=== PATIENT | female | born 1945 | race Caucasian/White ===

== ENCOUNTER 2017-11-29 07:08 | Inpatient (IN) | payer MEDICARE, OTHER ==
[2017-11-29] VITALS (20 sets, daily range): BP systolic 106–168; BP diastolic 60–98
[~2017-11-29] VITALS: Ht 160 cm; Wt 55.7 kg
[~2017-11-29 07:08] MED LIST: ASPI-611 PO; CARV-50 PO; FURO-150 PO; LOSA25TA96 PO; LOVA40TA76 PO; MULT-342 PO; NITR0.4T48 SL; NITR100C6 PO; POTA10TA36 PO
[2017-11-29] MEDS ORDERED: nitroGLYCERIN-Tridil 50MG/D5W 250 ML IV PRN (07:33)
[2017-11-29 07:34] LABS: BASOPHILS % (AUTO) 0.3 % (0-1); EOSINOPHILS # (AUTO) 0.1 X10'3 (0-0.9); EOSINOPHILS % (AUTO) 0.6 % (0-6); HEMATOCRIT 45.8 % (35.0-45.0); HEMOGLOBIN 15.6 g/dl (12.0-16.0); LYMPHOCYTES # (AUTO) 1.2 X10'3 (1.1-4.8); LYMPHOCYTES % (AUTO) 11.1 % (21-51); MEAN CORPUSCULAR HEMOGLOBIN 30.5 PG (27.0-31.0); MEAN CORPUSCULAR HGB CONC 33.9 % (33.0-36.5); MEAN CORPUSCULAR VOLUME 89.9 FL (78-98); MEAN PLATELET VOLUME 7.1 FL (7.4-10.4); MONOCYTES # (AUTO) 0.6 X10'3 (0-0.9); MONOCYTES % (AUTO) 5.7 % (2-12); NEUTROPHILS % (AUTO) 82.3 % (42-75); PLATELET COUNT 217 X10'3 (140-440); RED CELL DISTRIBUTION WIDTH 13.7 % (11.5-14.5)
[2017-11-29] MEDS ORDERED: heparin 10,000 units/1 ML INJ IV ONE (07:35)
[2017-11-29] MEDS ORDERED: metoprolol tartrate 1mg/ml inj IV ONE (07:35)
[2017-11-29] MEDS ORDERED: MORPHINE 2MG in 2ml NS syringe IV STA (07:37)
[2017-11-29 07:41] LABS: INR 1.1 INR; PARTIAL THROMBOPLASTIN TIME 32 SECONDS (22-32); PROTHROMBIN TIME 11.7 SECONDS (9.0-12.0)
[2017-11-29] MEDS ORDERED: iohexol 350 MG/ML 50ML vial IV ONE (07:52)
[2017-11-29] MEDS ORDERED: LIDOcaine 1%/PF (10mg/ml) 5ml vial ONE ×2 (07:52)
[2017-11-29] MEDS ORDERED: fentaNYL/PF 50MCG/1 ML 2ML syringe ONE (07:52)
[2017-11-29] MEDS ORDERED: iohexol 350 MG/1 ML 200ml bottle ONE (07:52)
[2017-11-29] MEDS ORDERED: midazolam 2 mg/2 ml injection ONE (07:52)
[2017-11-29 07:53] LABS: ALANINE AMINOTRANSFERASE 26 U/L (12-78); ALBUMIN 3.5 G/DL (3.4-5.0); ALBUMIN/GLOBULIN RATIO 0.9 (1.1-1.5); ALKALINE PHOSPHATASE 94 IU/L (46-116); ANION GAP 12 (8-16); ASPARTATE AMINO TRANSFERASE 21 U/L (10-37); BILIRUBIN,TOTAL 1.2 MG/DL (0.1-1.0); BLOOD UREA NITROGEN 14 MG/DL (7-18); CALCIUM 9.2 MG/DL (8.5-10.1); CHLORIDE 92 MMOL/L (99-107); GLUCOSE 110 MG/DL (70-104); POTASSIUM 4.2 MMOL/L (3.5-5.1); SODIUM 128 MMOL/L (135-145); TOTAL PROTEIN 7.6 G/DL (6.4-8.2); eGFR 82 ML/MIN
[2017-11-29] MEDS ORDERED: aspirin 81mg tab.chew ONE (08:00)
[2017-11-29] MEDS ORDERED: ondansetron/PF 4mg/2ml inj IV ONE (08:00)
[2017-11-29] MEDS ORDERED: heparin, porcine/D5W 25,000 units/250ml premix IV ONE (08:00)
[2017-11-29] MEDS ORDERED: nitroGLYCERIN in D5W 50mg/250ml (Tridil) infusion IV ONE (08:00)
[2017-11-29] MEDS ORDERED: sodium chloride 0.45% 1,000 ML IV ONE (10:05)
[2017-11-29] MEDS ORDERED: nitroGLYCERIN 0.4mg SUBLingual tab SL PRN (10:30)
[2017-11-29] MEDS ORDERED: morphine 10mg/ml inj. IV PRN (10:30)
[2017-11-29] MEDS ORDERED: acetaminophen 325mg tablet PO PRN (10:30)
[2017-11-29] MEDS ORDERED: cyclobenzaprine 10mg tablet PO PRN (10:30)
[2017-11-29] MEDS ORDERED: magnesium hydroxide 30ml (MOM) UD suspension PO PRN (10:30)
[2017-11-29] MEDS: nitrofuran/nitrofuran macrocrysal 100 MG capsule PO SCH ×2 (14:18→20:06)
[2017-11-29] MEDS: heparin 10,000 units/1 ML INJ IV PRN (16:43)
[2017-11-29] MEDS: docusate sod 100mg capsule PO SCH (20:00)
[2017-11-29] MEDS: carVEDilol 12.5mg tablet PO SCH (20:06)
[2017-11-29] MEDS: morphine 4 MG/ML inj SYRINge IV PRN (20:07)
[2017-11-29] MEDS: OXAZEpam 15mg capsule PO PRN (21:30)
[2017-11-30] VITALS (24 sets, daily range): BP systolic 104–170; BP diastolic 59–102
[2017-11-30 03:32] LABS: BASOPHILS % (AUTO) 0.3 % (0-1); EOSINOPHILS # (AUTO) 0.1 X10'3 (0-0.9); EOSINOPHILS % (AUTO) 0.9 % (0-6); HEMATOCRIT 37.4 % (35.0-45.0); HEMOGLOBIN 12.8 g/dl (12.0-16.0); LYMPHOCYTES # (AUTO) 1.3 X10'3 (1.1-4.8); LYMPHOCYTES % (AUTO) 12.7 % (21-51); MEAN CORPUSCULAR HEMOGLOBIN 30.8 PG (27.0-31.0); MEAN CORPUSCULAR HGB CONC 34.2 % (33.0-36.5); MEAN PLATELET VOLUME 7.7 FL (7.4-10.4); MONOCYTES # (AUTO) 0.7 X10'3 (0-0.9); MONOCYTES % (AUTO) 6.9 % (2-12); NEUTROPHILS # (AUTO) 7.8 X10'3 (1.8-7.7); NEUTROPHILS % (AUTO) 79.2 % (42-75); PLATELET COUNT 207 X10'3 (140-440); RED BLOOD COUNT 4.15 X10'6 (4.20-5.60); RED CELL DISTRIBUTION WIDTH 13.7 % (11.5-14.5); WHITE BLOOD COUNT 9.9 X10'3 (4.5-11.0)
[2017-11-30 03:47] LABS: ALBUMIN 2.9 G/DL (3.4-5.0); ANION GAP 9 (8-16); BLOOD UREA NITROGEN 15 MG/DL (7-18); BUN/CREATININE RATIO 33.3 (6.6-38.0); CALCIUM 8.5 MG/DL (8.5-10.1); CHLORIDE 96 MMOL/L (99-107); CHOL/HDL RATIO 2.7 (0.00-4.99); CHOLESTEROL 142 MG/DL (0-200); CREATININE 0.45 MG/DL (0.40-0.90); GLUCOSE 121 MG/DL (70-104); HDL CHOLESTEROL 53 MG/DL (35-60); LDL CHOLESTEROL 74 MG/DL (50-100); POTASSIUM 3.9 MMOL/L (3.5-5.1); SODIUM 129 MMOL/L (135-145); TOTAL CARBON DIOXIDE 24.2 MMOL/L (24-32); TRIGLYCERIDES 54 MG/DL (20-135); eGFR > 90 ML/MIN
[2017-11-30] MEDS: docusate sod 100mg capsule PO SCH ×2 (09:19→20:28)
[2017-11-30] MEDS: carVEDilol 12.5mg tablet PO SCH ×2 (09:19→20:28)
[2017-11-30] MEDS: furosemide 20MG tablet PO SCH (09:19)
[2017-11-30] MEDS: aspirin 81mg tab.chew PO SCH (09:20)
[2017-11-30] MEDS: multivitamins, therapeutics tablet PO SCH (09:20)
[2017-11-30] MEDS: atorvastatin 10mg tablet PO SCH (09:21)
[2017-11-30] MEDS: potassium chloride 10mEq ER tablet PO SCH (09:21)
[2017-11-30] MEDS: nitrofuran/nitrofuran macrocrysal 100 MG capsule PO SCH ×2 (09:24→20:28)
[2017-11-30] MEDS ORDERED: MESSAGE TO NURSING PO ONE ×5 (09:40→10:00)
[2017-11-30] MEDS ORDERED: dextrose 50%-water 50ml dispensing syringe IV PRN (09:40)
[2017-11-30] MEDS ORDERED: iohexol 350MG/ML 100ml bottle IV ONE (09:57)
[2017-11-30] MEDS: morphine 4 MG/ML inj SYRINge IV PRN ×3 (09:57→20:43)
[2017-11-30] MEDS: insulin Lispro (HumaLOG) vial - multi-dose SQ SCH ×2 (12:35→18:00)
[2017-11-30] MEDS: losartan 50mg tablet PO SCH (14:35)
[2017-11-30 15:33] LABS: INR 1.1 INR; PROTHROMBIN TIME 11.7 SECONDS (9.0-12.0)
[2017-11-30] MEDS: mupirocin 2% ointment 22GM NS SCH (19:46)
[2017-11-30] MEDS: OXAZEpam 15mg capsule PO PRN (20:43)
[2017-11-30] MEDS: methyl salicylate/menthol cream 85gm TP SCH (20:49)
[2017-12-01] VITALS (30 sets, daily range): BP systolic 84–143; BP diastolic 52–83
[2017-12-01 02:50] LABS: BASOPHILS # (AUTO) 0.1 X10'3 (0-0.2); EOSINOPHILS # (AUTO) 0.2 X10'3 (0-0.9); EOSINOPHILS % (AUTO) 2.5 % (0-6); HEMATOCRIT 36.1 % (35.0-45.0); HEMOGLOBIN 12.4 g/dl (12.0-16.0); LYMPHOCYTES # (AUTO) 1.1 X10'3 (1.1-4.8); LYMPHOCYTES % (AUTO) 12.2 % (21-51); MEAN CORPUSCULAR HEMOGLOBIN 30.7 PG (27.0-31.0); MEAN CORPUSCULAR HGB CONC 34.4 % (33.0-36.5); MEAN CORPUSCULAR VOLUME 89.3 FL (78-98); MEAN PLATELET VOLUME 7.1 FL (7.4-10.4); MONOCYTES # (AUTO) 0.7 X10'3 (0-0.9); MONOCYTES % (AUTO) 7.5 % (2-12); NEUTROPHILS # (AUTO) 7.1 X10'3 (1.8-7.7); NEUTROPHILS % (AUTO) 76.8 % (42-75); PLATELET COUNT 207 X10'3 (140-440); RED BLOOD COUNT 4.04 X10'6 (4.20-5.60); RED CELL DISTRIBUTION WIDTH 13.8 % (11.5-14.5); WHITE BLOOD COUNT 9.2 X10'3 (4.5-11.0)
[2017-12-01 03:06] LABS: ALBUMIN 2.8 G/DL (3.4-5.0); ANION GAP 8 (8-16); BLOOD UREA NITROGEN 12 MG/DL (7-18); BUN/CREATININE RATIO 24.5 (6.6-38.0); CALCIUM 8.6 MG/DL (8.5-10.1); CHLORIDE 94 MMOL/L (99-107); CREATININE 0.49 MG/DL (0.40-0.90); GLUCOSE 123 MG/DL (70-104); POTASSIUM 3.9 MMOL/L (3.5-5.1); SODIUM 130 MMOL/L (135-145); TOTAL CARBON DIOXIDE 28.5 MMOL/L (24-32); eGFR > 90 ML/MIN
[2017-12-01] MEDS ORDERED: insulin regular, human inj. 100 UNITS in normal saline 100ml IV soln 100 ML IV SCH ×2 (05:00)
[2017-12-01] MEDS ORDERED: vancomycin/NS 1 GM ADD-VANTAGE 250 ML IV ONE (05:00)
[2017-12-01] MEDS ORDERED: ceFAZolin 2gm in dextrose, iso 100 ML IV ONE (05:00)
[2017-12-01] MEDS: carVEDilol 12.5mg tablet PO SCH ×2 (08:00→20:37)
[2017-12-01] MEDS: losartan 50mg tablet PO SCH (08:00)
[2017-12-01] MEDS: multivitamins, therapeutics tablet PO SCH (08:36)
[2017-12-01] MEDS: docusate sod 100mg capsule PO SCH ×2 (08:36→20:36)
[2017-12-01] MEDS: aspirin 81mg tab.chew PO SCH (08:37)
[2017-12-01] MEDS: furosemide 20MG tablet PO SCH (08:37)
[2017-12-01] MEDS: nitrofuran/nitrofuran macrocrysal 100 MG capsule PO SCH ×2 (08:37→20:36)
[2017-12-01] MEDS: atorvastatin 10mg tablet PO SCH (08:37)
[2017-12-01] MEDS: potassium chloride 10mEq ER tablet PO SCH (08:37)
[2017-12-01] MEDS: methyl salicylate/menthol cream 85gm TP SCH ×3 (08:38→21:00)
[2017-12-01] MEDS: heparin 10,000 units/1 ML INJ IV PRN (10:47)
[2017-12-01] MEDS ORDERED: MESSAGE TO NURSING PO ONE ×2 (12:38→12:46)
[2017-12-01 13:10] LABS: CLARITY,URINE Clear (Clear); COLOR,URINE Dark Yellow (Yellow); GLUCOSE, URINE Negative (Neg); KETONES,URINE 15 mg/dl (Neg); LEUKOCYTE ESTERASE ,URINE Negative (Neg); NITRITES, URINE Negative (Neg); OCCULT BLOOD,URINE Negative (Neg); PH,URINE 5.5 (4.8-8.0); PROTEIN,URINE Negative (Neg)
[2017-12-01] MEDS ORDERED: dextrose 50%-water 50ml dispensing syringe IV PRN (13:15)
[2017-12-01 13:23] LABS: UA COLLECTION TYPE NON-SPECIFIED
[2017-12-01] MEDS: pantoprazole 40 MG vial IV SCH (16:08)
[2017-12-01] MEDS: morphine 4 MG/ML inj SYRINge IV PRN (19:43)
[2017-12-01] MEDS: proCHLORperazine 10 MG/2 ml inj IV PRN (23:36)
[2017-12-02] VITALS (30 sets, daily range): BP systolic 85–160; BP diastolic 50–89
[2017-12-02] MEDS: morphine 4 MG/ML inj SYRINge IV PRN (00:07)
[2017-12-02] MEDS ORDERED: MESSAGE TO NURSING PO ONE ×3 (01:30→05:30)
[2017-12-02] MEDS ORDERED: morphine 4 MG/ML inj SYRINge IV ONE (02:20)
[2017-12-02] MEDS ORDERED: morphine 4 MG/ML inj SYRINge IV PRN (02:20)
[2017-12-02 03:25] LABS: BASOPHILS % (AUTO) 0.2 % (0-1); EOSINOPHILS % (AUTO) 0.2 % (0-6); HEMATOCRIT 37.3 % (35.0-45.0); HEMOGLOBIN 12.7 g/dl (12.0-16.0); LYMPHOCYTES # (AUTO) 0.6 X10'3 (1.1-4.8); LYMPHOCYTES % (AUTO) 4.3 % (21-51); MEAN CORPUSCULAR HEMOGLOBIN 30.8 PG (27.0-31.0); MEAN CORPUSCULAR VOLUME 90.4 FL (78-98); MEAN PLATELET VOLUME 7.4 FL (7.4-10.4); MONOCYTES # (AUTO) 0.3 X10'3 (0-0.9); MONOCYTES % (AUTO) 2.3 % (2-12); NEUTROPHILS # (AUTO) 12.5 X10'3 (1.8-7.7); PLATELET COUNT 216 X10'3 (140-440); RED BLOOD COUNT 4.13 X10'6 (4.20-5.60); RED CELL DISTRIBUTION WIDTH 13.5 % (11.5-14.5); WHITE BLOOD COUNT 13.4 X10'3 (4.5-11.0)
[2017-12-02 03:37] LABS: ALBUMIN 2.9 G/DL (3.4-5.0); ANION GAP 10 (8-16); BLOOD UREA NITROGEN 20 MG/DL (7-18); BUN/CREATININE RATIO 45.5 (6.6-38.0); CALCIUM 9.1 MG/DL (8.5-10.1); CHLORIDE 93 MMOL/L (99-107); CREATININE 0.44 MG/DL (0.40-0.90); GLUCOSE 151 MG/DL (70-104); POTASSIUM 4.1 MMOL/L (3.5-5.1); SODIUM 129 MMOL/L (135-145); TOTAL CARBON DIOXIDE 26.2 MMOL/L (24-32); eGFR > 90 ML/MIN
[2017-12-02 03:39] LABS: INR 1.1 INR; PROTHROMBIN TIME 11.5 SECONDS (9.0-12.0)
[2017-12-02] MEDS ORDERED: ceFAZolin 2gm in dextrose, iso 100 ML IV ONE (05:30)
[2017-12-02] MEDS ORDERED: vancomycin/NS 1 GM ADD-VANTAGE 250 ML IV ONE (05:30)
[2017-12-02] MEDS: proCHLORperazine 10 MG/2 ml inj IV PRN (06:39)
[2017-12-02] MEDS: pantoprazole 40 MG vial IV SCH (07:38)
[2017-12-02] MEDS: methyl salicylate/menthol cream 85gm TP SCH ×3 (08:00→20:33)
[2017-12-02] MEDS: carVEDilol 12.5mg tablet PO SCH ×2 (08:12→20:31)
[2017-12-02] MEDS: furosemide 20MG tablet PO SCH (08:12)
[2017-12-02] MEDS: potassium chloride 10mEq ER tablet PO SCH (08:13)
[2017-12-02] MEDS: aspirin 81mg tab.chew PO SCH (08:13)
[2017-12-02] MEDS: atorvastatin 10mg tablet PO SCH (08:13)
[2017-12-02] MEDS: multivitamins, therapeutics tablet PO SCH (08:14)
[2017-12-02] MEDS: losartan 50mg tablet PO SCH (08:14)
[2017-12-02] MEDS: docusate sod 100mg capsule PO SCH ×2 (08:14→20:31)
[2017-12-02] MEDS: nitrofuran/nitrofuran macrocrysal 100 MG capsule PO SCH ×2 (08:14→20:31)
[2017-12-02 17:41] LABS: ABG HCO3 28.5 mmol/L (22.0-26.0); ABG PCO2 (T) 42.5 mmHg (32.0-45.0); ABG PH (T) 7.445 (7.350-7.450); FCOHb 0.6 % (0.5-1.5); FLOW 2 L/min; FMetHb 0.1 % (0.3-1.12); FO2Hb 93.3 % (94-100); TOTAL HEMOGLOBIN 13.1 G/dl (12.0-16.0)
[2017-12-02] MEDS ORDERED: ringers solution, lacted 1,000 ML IV ONE (17:52)
[2017-12-02 19:47] LABS: MAGNESIUM 1.8 MG/DL (1.5-2.4); PHOSPHORUS 2.8 MG/DL (2.3-4.5)
[2017-12-02] MEDS: ipratropium/albuterol 3ml nebule NEB SCH (20:00)
[2017-12-03] VITALS (24 sets, daily range): BP systolic 98–148; BP diastolic 48–82
[2017-12-03] MEDS: insulin Lispro (HumaLOG) vial - multi-dose SQ SCH ×8 (02:57→18:00)
[2017-12-03] MEDS: mupirocin 2% ointment 22GM NS SCH ×4 (03:04→20:27)
[2017-12-03 03:51] LABS: ALBUMIN 2.5 G/DL (3.4-5.0); ANION GAP 6 (8-16); BLOOD UREA NITROGEN 20 MG/DL (7-18); BUN/CREATININE RATIO 35.7 (6.6-38.0); CALCIUM 8.6 MG/DL (8.5-10.1); CHLORIDE 95 MMOL/L (99-107); CREATININE 0.56 MG/DL (0.40-0.90); GLUCOSE 135 MG/DL (70-104); POTASSIUM 4.3 MMOL/L (3.5-5.1); SODIUM 131 MMOL/L (135-145); TOTAL CARBON DIOXIDE 30.2 MMOL/L (24-32); eGFR > 90 ML/MIN
[2017-12-03 03:54] LABS: BASOPHILS # (AUTO) 0.1 X10'3 (0-0.2); BASOPHILS % (AUTO) 0.6 % (0-1); EOSINOPHILS # (AUTO) 0.2 X10'3 (0-0.9); EOSINOPHILS % (AUTO) 1.2 % (0-6); HEMATOCRIT 33.2 % (35.0-45.0); HEMOGLOBIN 11.5 g/dl (12.0-16.0); LYMPHOCYTES # (AUTO) 0.9 X10'3 (1.1-4.8); LYMPHOCYTES % (AUTO) 6.5 % (21-51); MEAN CORPUSCULAR HEMOGLOBIN 30.9 PG (27.0-31.0); MEAN CORPUSCULAR HGB CONC 34.6 % (33.0-36.5); MEAN CORPUSCULAR VOLUME 89.3 FL (78-98); MEAN PLATELET VOLUME 8.1 FL (7.4-10.4); MONOCYTES # (AUTO) 0.5 X10'3 (0-0.9); MONOCYTES % (AUTO) 3.9 % (2-12); NEUTROPHILS # (AUTO) 11.7 X10'3 (1.8-7.7); NEUTROPHILS % (AUTO) 87.8 % (42-75); PLATELET COUNT 226 X10'3 (140-440); RED BLOOD COUNT 3.71 X10'6 (4.20-5.60); RED CELL DISTRIBUTION WIDTH 12.8 % (11.5-14.5); WHITE BLOOD COUNT 13.4 X10'3 (4.5-11.0)
[2017-12-03] MEDS ORDERED: ceFAZolin 2gm in dextrose, iso 100 ML IV ONE (05:30)
[2017-12-03] MEDS ORDERED: vancomycin/NS 1 GM ADD-VANTAGE 250 ML IV ONE (05:30)
[2017-12-03] MEDS ORDERED: LORazepam 2 mg/ml vial IV ONE (06:00)
[2017-12-03] MEDS ORDERED: famotidine 20mg tablet PO ONE (06:00)
[2017-12-03] MEDS: carVEDilol 12.5mg tablet PO SCH (07:22)
[2017-12-03] MEDS: methyl salicylate/menthol cream 85gm TP SCH ×2 (08:00→13:00)
[2017-12-03] MEDS: furosemide 20MG tablet PO SCH ×2 (08:00→08:50)
[2017-12-03] MEDS: losartan 50mg tablet PO SCH ×2 (08:00→08:49)
[2017-12-03] MEDS: docusate sod 100mg capsule PO SCH ×2 (08:49→20:00)
[2017-12-03] MEDS: potassium chloride 10mEq ER tablet PO SCH (08:49)
[2017-12-03] MEDS: aspirin 81mg tab.chew PO SCH (08:50)
[2017-12-03] MEDS: atorvastatin 10mg tablet PO SCH (08:50)
[2017-12-03] MEDS: nitrofuran/nitrofuran macrocrysal 100 MG capsule PO SCH ×2 (08:50→20:00)
[2017-12-03] MEDS: multivitamins, therapeutics tablet PO SCH (08:50)
[2017-12-03] MEDS: pantoprazole 40 MG vial IV SCH (08:50)
[2017-12-03] MEDS: ipratropium/albuterol 3ml nebule NEB SCH (09:06)
[2017-12-03] MEDS: insulin regular, human inj. 100 UNITS in normal saline 100ml IV soln 100 ML IV SCH ×10 (12:22→21:18)
[2017-12-03] MEDS ORDERED: MIDAZolam 1mg/ml 10ml vial ONE (12:25)
[2017-12-03] MEDS ORDERED: SUFENTANIL CITRATE 50 MCG/ML 2ml ampule IV ONE (12:25)
[2017-12-03] MEDS ORDERED: magnesium 1 GM/2 ML inj ONE (13:06)
[2017-12-03] MEDS ORDERED: DOPamine/D5W 400mg/250ml bag IV ONE (13:06)
[2017-12-03] MEDS ORDERED: potassium Cl 2 mEq/ml inj IV ONE (13:06)
[2017-12-03] MEDS ORDERED: nitroGLYCERIN in D5W 50mg/250ml (Tridil) infusion IV ONE (13:06)
[2017-12-03] MEDS ORDERED: calcium chloride 100 MG/1 ML inj IV ONE (13:06)
[2017-12-03] MEDS ORDERED: sodium bicarbonate (8.4%) 1 mEq/ml syringe ONE (13:06)
[2017-12-03] MEDS ORDERED: sevoflurane 250ml liquid IH ONE (13:06)
[2017-12-03] MEDS ORDERED: phenylephrine 10mg/ml inj IV ONE ×2 (13:06→17:14)
[2017-12-03] MEDS ORDERED: albumin (human) 25% 100 ML IV solution IV ONE (13:06)
[2017-12-03] MEDS ORDERED: LIDOcaine 2% (20 mg/ml) 5ml cardiac syringe ONE (13:06)
[2017-12-03] MEDS ORDERED: heparin 10,000 units/1 ML INJ ONE (13:06)
[2017-12-03 14:01] LABS: ABG BASE EXCESS 2.5 mmol/L (-2.0-3.0); ABG HCO3 27.1 mmol/L (22.0-26.0); ABG OXYGEN SATURATION 99.6 % (95-98); ABG PCO2 42.1 mmHg (35.0-45.0); ABG PH 7.427 (7.350-7.450); ABG PO2 317.7 mmHg (60.0-100.0); CL (ABG) 98 mmol/L (99-107); FCOHb 0.2 % (0.5-1.5); FMetHb 0.4 % (0.3-1.12); GLUCOSE (ABG) 108 mg/dl (70-105); IONIZED CA (ABG) 1.14 mmol/L (1.03-1.32); K (ABG) 3.9 mmol/L (3.3-5.1); NA (ABG) 129 mmol/L (135-145); TOTAL HEMOGLOBIN 11.5 G/dl (12.0-16.0)
[2017-12-03] MEDS ORDERED: heparin 10,000 units/1 ML INJ IR ONE (14:08)
[2017-12-03] MEDS ORDERED: papaverine 30 mg/ml 2ml inj. IA ONE (14:11)
[2017-12-03 14:36] LABS: ABG BASE EXCESS VENOUS 0.4 mmol/L; ABG HCO3 VENOUS 26.6 mmol/L; ABG PCO2 VENOUS 50.5 mmHg; ABG PO2 VENOUS 48.2 mmHg; CL (ABG) 96 mmol/L (99-107); FCOHb VENOUS 0.6 %; FHHb VENOUS 17.2 %; FMetHb VENOUS 0.3 %; FO2Hb VENOUS 81.9 %; GLUCOSE (ABG) 125 mg/dl (70-105); IONIZED CA (ABG) 1.16 mmol/L (1.03-1.32); NA (ABG) 129 mmol/L (135-145); TOTAL HEMOGLOBIN 10.6 G/dl (12.0-16.0)
[2017-12-03 15:10] LABS: ABG BASE EXCESS 1.7 mmol/L (-2.0-3.0); ABG OXYGEN SATURATION 99.4 % (95-98); ABG PCO2 33.7 mmHg (35.0-45.0); ABG PH 7.489 (7.350-7.450); ABG PO2 533.6 mmHg (60.0-100.0); CL (ABG) 97 mmol/L (99-107); FCOHb 0.4 % (0.5-1.5); FMetHb 0.8 % (0.3-1.12); FO2Hb 98.2 % (94-100); GLUCOSE (ABG) 111 mg/dl (70-105); IONIZED CA (ABG) 0.97 mmol/L (1.03-1.32); K (ABG) 5.6 mmol/L (3.3-5.1); NA (ABG) 126 mmol/L (135-145); TOTAL HEMOGLOBIN 7.1 G/dl (12.0-16.0)
[2017-12-03 15:35] LABS: ABG BASE EXCESS 1.4 mmol/L (-2.0-3.0); ABG OXYGEN SATURATION 99.6 % (95-98); ABG PCO2 35.1 mmHg (35.0-45.0); ABG PH 7.471 (7.350-7.450); ABG PO2 519.8 mmHg (60.0-100.0); CL (ABG) 97 mmol/L (99-107); FCOHb 0.5 % (0.5-1.5); FMetHb 0.7 % (0.3-1.12); FO2Hb 98.4 % (94-100); GLUCOSE (ABG) 112 mg/dl (70-105); IONIZED CA (ABG) 1.02 mmol/L (1.03-1.32); K (ABG) 5.3 mmol/L (3.3-5.1); NA (ABG) 127 mmol/L (135-145); TOTAL HEMOGLOBIN 7.5 G/dl (12.0-16.0)
[2017-12-03 16:11] LABS: ABG HCO3 26.1 mmol/L (22.0-26.0); ABG OXYGEN SATURATION 99.7 % (95-98); ABG PCO2 38.2 mmHg (35.0-45.0); ABG PH 7.452 (7.350-7.450); ABG PO2 519.6 mmHg (60.0-100.0); CL (ABG) 98 mmol/L (99-107); FCOHb 0.7 % (0.5-1.5); FMetHb 0.7 % (0.3-1.12); FO2Hb 98.3 % (94-100); GLUCOSE (ABG) 131 mg/dl (70-105); K (ABG) 5.4 mmol/L (3.3-5.1); NA (ABG) 127 mmol/L (135-145); TOTAL HEMOGLOBIN 7.7 G/dl (12.0-16.0)
[2017-12-03 16:25] LABS: ABG BASE EXCESS VENOUS -1.7 mmol/L; ABG HCO3 VENOUS 24.1 mmol/L; ABG PCO2 VENOUS 45.7 mmHg; ABG PO2 VENOUS 56.7 mmHg; CL (ABG) 99 mmol/L (99-107); FCOHb VENOUS 0.2 %; FHHb VENOUS 12.4 %; FMetHb VENOUS 0.7 %; FO2Hb VENOUS 86.7 %; GLUCOSE (ABG) 130 mg/dl (70-105); IONIZED CA (ABG) 1.17 mmol/L (1.03-1.32); K (ABG) 5.1 mmol/L (3.3-5.1); NA (ABG) 129 mmol/L (135-145); TOTAL HEMOGLOBIN 8.8 G/dl (12.0-16.0)
[2017-12-03] MEDS ORDERED: niCARDipine/sod cl 20mg/200ml 200 ML IV PRN (16:58)
[2017-12-03] MEDS ORDERED: nitroGLYCERIN-Tridil 50MG/D5W 250 ML IV PRN (16:58)
[2017-12-03] MEDS ORDERED: NORepinephrine 8mg/ 250ml NS 250 ML IV PRN (16:58)
[2017-12-03] MEDS ORDERED: DOPamine 400mg/D5W 250ml 250 ML IV PRN (16:58)
[2017-12-03] MEDS ORDERED: Neutra Phos packet PO PRN (17:00)
[2017-12-03] MEDS ORDERED: sodium phosphate inj. 30 MMOL in dextrose 5%-water 250 ML IV PRN (17:00)
[2017-12-03] MEDS ORDERED: dextrose 50%-water 50ml dispensing syringe IV PRN (17:00)
[2017-12-03] MEDS ORDERED: magnesium 2GM in 50ml NS 50 ML IV PRN (17:00)
[2017-12-03] MEDS ORDERED: insulin regular, human inj. 100 UNITS in normal saline 100ml IV soln 100 ML IV SCH ×2 (17:00)
[2017-12-03] MEDS ORDERED: normal saline 250ml IV soln 250 ML IV PRN (17:00)
[2017-12-03] MEDS ORDERED: potassium Cl 20mEq/100mL bag 100 ML IV PRN ×3 (17:00)
[2017-12-03] MEDS ORDERED: epiNEPHrine inj 5 MG, calcium chloride inj. 1,000 MG in normal saline 250ml IV soln 250 ML IV SCH (17:00)
[2017-12-03] MEDS ORDERED: morphine 4 MG/ML inj SYRINge IV PRN ×2 (17:00→19:40)
[2017-12-03] MEDS ORDERED: acetaminophen 325mg tablet PO PRN (17:00)
[2017-12-03] MEDS ORDERED: metoclopramide 5 mg/ml inj IV PRN (17:00)
[2017-12-03] MEDS ORDERED: magnesium hydroxide 30ml (MOM) UD suspension PO PRN (17:00)
[2017-12-03] MEDS ORDERED: HYDROcodone/acetaminophen 10/325mg tab PO PRN (17:00)
[2017-12-03] MEDS ORDERED: sodium phosphate inj. 15 MMOL in dextrose 5%-water 150 ML IV PRN (17:00)
[2017-12-03] MEDS ORDERED: magnesium 4gm in 100ml NS 100 ML IV PRN (17:00)
[2017-12-03] MEDS ORDERED: etomidate 2mg/ml inj. ONE (17:14)
[2017-12-03] MEDS ORDERED: LIDOcaine 2% (20mg/ml) 5ml vial ONE (17:14)
[2017-12-03] MEDS ORDERED: rocuronium 10mg/ml inj IV ONE ×3 (17:14)
[2017-12-03 17:19] LABS: BASOPHILS % (AUTO) 0.2 % (0-1); EOSINOPHILS # (AUTO) 0.4 X10'3 (0-0.9); EOSINOPHILS % (AUTO) 2.3 % (0-6); HEMATOCRIT 28.4 % (35.0-45.0); HEMOGLOBIN 9.8 g/dl (12.0-16.0); LYMPHOCYTES # (AUTO) 1.4 X10'3 (1.1-4.8); LYMPHOCYTES % (AUTO) 8.5 % (21-51); MEAN CORPUSCULAR HEMOGLOBIN 31.1 PG (27.0-31.0); MEAN CORPUSCULAR HGB CONC 34.4 % (33.0-36.5); MEAN CORPUSCULAR VOLUME 90.3 FL (78-98); MONOCYTES # (AUTO) 0.8 X10'3 (0-0.9); MONOCYTES % (AUTO) 4.8 % (2-12); NEUTROPHILS # (AUTO) 13.9 X10'3 (1.8-7.7); NEUTROPHILS % (AUTO) 84.2 % (42-75); PLATELET COUNT 166 X10'3 (140-440); RED BLOOD COUNT 3.14 X10'6 (4.20-5.60); RED CELL DISTRIBUTION WIDTH 13.7 % (11.5-14.5); WHITE BLOOD COUNT 16.5 X10'3 (4.5-11.0)
[2017-12-03 17:21] LABS: ABG BASE EXCESS -1.7 mmol/L (-2.0-3.0); ABG HCO3 23.5 mmol/L (22.0-26.0); ABG OXYGEN SATURATION 98.7 % (95-98); ABG PCO2 (T) 41.7 mmHg (32.0-45.0); ABG PH (T) 7.369 (7.350-7.450); ABG PO2 (T) 159.5 mmHg (83-108); FCOHb 0.3 % (0.5-1.5); FLOW 30 L/min; FMetHb 0.1 % (0.3-1.12); FO2Hb 98.3 % (94-100); PEEP 5 cm H2O; RESPIRATORY RATE 12 b/min; RESPIRATORY RATE (OBSERVED) 12 b/min; TIDAL VOLUME 450 mL; TOTAL HEMOGLOBIN 10.7 G/dl (12.0-16.0)
[2017-12-03 17:31] LABS: INR 1.3 INR; PARTIAL THROMBOPLASTIN TIME 30 SECONDS (22-32); PROTHROMBIN TIME 13.6 SECONDS (9.0-12.0)
[2017-12-03 17:36] LABS: ALANINE AMINOTRANSFERASE 25 U/L (12-78); ALBUMIN 1.7 G/DL (3.4-5.0); ALBUMIN/GLOBULIN RATIO 0.5 (1.1-1.5); ALKALINE PHOSPHATASE 60 IU/L (46-116); ANION GAP 5 (8-16); ASPARTATE AMINO TRANSFERASE 31 U/L (10-37); BLOOD UREA NITROGEN 15 MG/DL (7-18); BUN/CREATININE RATIO 30.6 (6.6-38.0); CALCIUM 7.9 MG/DL (8.5-10.1); CHLORIDE 103 MMOL/L (99-107); CREATININE 0.49 MG/DL (0.40-0.90); GLUCOSE 173 MG/DL (70-104); PHOSPHORUS 2.8 MG/DL (2.3-4.5); POTASSIUM 5.1 MMOL/L (3.5-5.1); SODIUM 137 MMOL/L (135-145); TOTAL CARBON DIOXIDE 28.7 MMOL/L (24-32); TOTAL PROTEIN 4.8 G/DL (6.4-8.2); eGFR > 90 ML/MIN
[2017-12-03] MEDS: morphine 4 MG/ML inj SYRINge IV PRN ×4 (17:40→22:49)
[2017-12-03] MEDS: sodium chloride 0.45% 1,000 ML IV SCH (18:07)
[2017-12-03] MEDS: albumin (Human) 5% 250ml 250 ML IV PRN ×2 (19:01→20:46)
[2017-12-03] MEDS ORDERED: ketorolac tromethamine 15mg/ml inj. IM SCH (20:00)
[2017-12-03] MEDS: vancomycin/NS 1 GM ADD-VANTAGE 250 ML IV SCH (20:26)
[2017-12-03] MEDS ORDERED: ketorolac tromethamine 15mg/ml inj. IV ONE (20:50)
[2017-12-03 23:29] LABS: BASOPHILS % (AUTO) 0.1 % (0-1); EOSINOPHILS % (AUTO) 0 % (0-6); HEMATOCRIT 24.1 % (35.0-45.0); HEMOGLOBIN 8.3 g/dl (12.0-16.0); LYMPHOCYTES # (AUTO) 0.4 X10'3 (1.1-4.8); MEAN CORPUSCULAR HGB CONC 34.6 % (33.0-36.5); MEAN CORPUSCULAR VOLUME 89.6 FL (78-98); MEAN PLATELET VOLUME 6.8 FL (7.4-10.4); MONOCYTES # (AUTO) 0.3 X10'3 (0-0.9); MONOCYTES % (AUTO) 3.7 % (2-12); NEUTROPHILS # (AUTO) 8.5 X10'3 (1.8-7.7); NEUTROPHILS % (AUTO) 92.2 % (42-75); PLATELET COUNT 137 X10'3 (140-440); RED BLOOD COUNT 2.69 X10'6 (4.20-5.60); RED CELL DISTRIBUTION WIDTH 13.8 % (11.5-14.5); WHITE BLOOD COUNT 9.2 X10'3 (4.5-11.0)
[2017-12-03 23:38] LABS: ALBUMIN 2.8 G/DL (3.4-5.0); ANION GAP 6 (8-16); BLOOD UREA NITROGEN 19 MG/DL (7-18); BUN/CREATININE RATIO 35.8 (6.6-38.0); CHLORIDE 106 MMOL/L (99-107); CREATININE 0.53 MG/DL (0.40-0.90); GLUCOSE 132 MG/DL (70-104); MAGNESIUM 2.5 MG/DL (1.5-2.4); POTASSIUM 4.4 MMOL/L (3.5-5.1); SODIUM 140 MMOL/L (135-145); TOTAL CARBON DIOXIDE 28.2 MMOL/L (24-32); eGFR > 90 ML/MIN
[2017-12-04] VITALS (24 sets, daily range): BP systolic 90–145; BP diastolic 36–78
[2017-12-04] MEDS: ceFAZolin 1GM/D5W- ADD-VANTAGE 50 ML IV SCH ×4 (01:25→23:58)
[2017-12-04] MEDS: insulin regular, human inj. 100 UNITS in normal saline 100ml IV soln 100 ML IV SCH ×2 (01:40)
[2017-12-04] MEDS: ketorolac tromethamine 15mg/ml inj. IV SCH ×4 (02:00→20:52)
[2017-12-04 02:16] LABS: ABG BASE EXCESS -0.5 mmol/L (-2.0-3.0); ABG HCO3 24.1 mmol/L (22.0-26.0); ABG PCO2 (T) 39.3 mmHg (32.0-45.0); ABG PH (T) 7.405 (7.350-7.450); ABG PO2 (T) 82.7 mmHg (83-108); FCOHb 0.3 % (0.5-1.5); FMetHb 0.1 % (0.3-1.12); FO2Hb 94.6 % (94-100); PEEP 5 cm H2O; RESPIRATORY RATE (OBSERVED) 12 b/min; TOTAL HEMOGLOBIN 9.2 G/dl (12.0-16.0)
[2017-12-04] MEDS: morphine 4 MG/ML inj SYRINge IV PRN (03:11)
[2017-12-04 04:41] LABS: BASOPHILS % (AUTO) 0 % (0-1); EOSINOPHILS # (AUTO) 0.2 X10'3 (0-0.9); EOSINOPHILS % (AUTO) 1.4 % (0-6); HEMATOCRIT 24.8 % (35.0-45.0); HEMOGLOBIN 8.4 g/dl (12.0-16.0); LYMPHOCYTES # (AUTO) 0.7 X10'3 (1.1-4.8); LYMPHOCYTES % (AUTO) 5.4 % (21-51); MEAN CORPUSCULAR HEMOGLOBIN 30.6 PG (27.0-31.0); MEAN CORPUSCULAR HGB CONC 33.8 % (33.0-36.5); MEAN CORPUSCULAR VOLUME 90.5 FL (78-98); MEAN PLATELET VOLUME 7.1 FL (7.4-10.4); MONOCYTES # (AUTO) 0.5 X10'3 (0-0.9); MONOCYTES % (AUTO) 4.3 % (2-12); NEUTROPHILS # (AUTO) 10.7 X10'3 (1.8-7.7); NEUTROPHILS % (AUTO) 88.9 % (42-75); PLATELET COUNT 152 X10'3 (140-440); RED BLOOD COUNT 2.74 X10'6 (4.20-5.60); RED CELL DISTRIBUTION WIDTH 13.5 % (11.5-14.5); WHITE BLOOD COUNT 12.1 X10'3 (4.5-11.0)
[2017-12-04 04:51] LABS: INR 1.2 INR; PARTIAL THROMBOPLASTIN TIME 30 SECONDS (22-32); PROTHROMBIN TIME 12.4 SECONDS (9.0-12.0)
[2017-12-04 04:54] LABS: ALANINE AMINOTRANSFERASE 28 U/L (12-78); ALBUMIN 2.9 G/DL (3.4-5.0); ALBUMIN/GLOBULIN RATIO 1.2 (1.1-1.5); ALKALINE PHOSPHATASE 50 IU/L (46-116); ANION GAP 4 (8-16); ASPARTATE AMINO TRANSFERASE 31 U/L (10-37); BILIRUBIN,TOTAL 0.6 MG/DL (0.1-1.0); BLOOD UREA NITROGEN 20 MG/DL (7-18); BUN/CREATININE RATIO 36.4 (6.6-38.0); CALCIUM 8.5 MG/DL (8.5-10.1); CHLORIDE 108 MMOL/L (99-107); CREATININE 0.55 MG/DL (0.40-0.90); GLUCOSE 86 MG/DL (70-104); MAGNESIUM 2.6 MG/DL (1.5-2.4); PHOSPHORUS 3.2 MG/DL (2.3-4.5); POTASSIUM 4.7 MMOL/L (3.5-5.1); SODIUM 141 MMOL/L (135-145); TOTAL CARBON DIOXIDE 28.9 MMOL/L (24-32); TOTAL PROTEIN 5.3 G/DL (6.4-8.2); eGFR > 90 ML/MIN
[2017-12-04] MEDS: HYDROcodone/acetaminophen 10/325mg tab PO PRN ×2 (05:46→10:18)
[2017-12-04] MEDS: metoprolol tartrate 12.5mg (1/2 tablet) PO SCH ×2 (08:00→20:50)
[2017-12-04] MEDS: atorvastatin 10mg tablet PO SCH (08:17)
[2017-12-04] MEDS: docusate sod 100mg capsule PO SCH ×2 (08:17→20:50)
[2017-12-04] MEDS: aspirin 325mg tablet, delayed-release (Ecotrin) PO SCH (08:17)
[2017-12-04] MEDS: multivitamins, therapeutics tablet PO SCH (08:17)
[2017-12-04] MEDS: nitrofuran/nitrofuran macrocrysal 100 MG capsule PO SCH ×2 (08:17→20:50)
[2017-12-04] MEDS: pantoprazole 40mg Tablet.DR PO SCH (08:17)
[2017-12-04] MEDS: mupirocin 2% ointment 22GM NS SCH ×2 (08:21→20:52)
[2017-12-04] MEDS: insulin Lispro (HumaLOG) vial - multi-dose SQ SCH ×3 (08:27→17:07)
[2017-12-04 08:56] LABS: ACT @ 1.70 U 324 SEC (193-297); ACT @ 2.84 U 467 SEC (260-420); BASELINE ACT 152 SEC (101-148); PATIENT WEIGHT 55.0k KG
[2017-12-04 08:56] LABS: ACTIVATED CLOTTING TIME 135 SEC (101-148)
[2017-12-04] MEDS: vancomycin/NS 1 GM ADD-VANTAGE 250 ML IV SCH ×2 (09:35→20:49)
[2017-12-04] MEDS: NUT.TX.GLUC.INTOLER,LAC-FR,REG (BOOST GLUCOSE CONTROL) 237 ML PO SCH (18:00)
[2017-12-05] VITALS (23 sets, daily range): BP systolic 106–152; BP diastolic 61–93
[2017-12-05] MEDS: ketorolac tromethamine 15mg/ml inj. IV SCH ×3 (02:28→14:00)
[2017-12-05] MEDS: insulin regular, human inj. 100 UNITS in normal saline 100ml IV soln 100 ML IV SCH ×2 (03:31)
[2017-12-05 03:44] LABS: BASOPHILS # (AUTO) 0.2 X10'3 (0-0.2); EOSINOPHILS % (AUTO) 0 % (0-6); HEMATOCRIT 24.8 % (35.0-45.0); HEMOGLOBIN 8.4 g/dl (12.0-16.0); LYMPHOCYTES # (AUTO) 0.9 X10'3 (1.1-4.8); LYMPHOCYTES % (AUTO) 5.1 % (21-51); MEAN CORPUSCULAR HEMOGLOBIN 30.6 PG (27.0-31.0); MEAN CORPUSCULAR HGB CONC 33.7 % (33.0-36.5); MEAN CORPUSCULAR VOLUME 90.8 FL (78-98); MEAN PLATELET VOLUME 7.9 FL (7.4-10.4); MONOCYTES # (AUTO) 0.8 X10'3 (0-0.9); MONOCYTES % (AUTO) 4.2 % (2-12); NEUTROPHILS # (AUTO) 16.3 X10'3 (1.8-7.7); NEUTROPHILS % (AUTO) 89.7 % (42-75); PLATELET COUNT 154 X10'3 (140-440); RED BLOOD COUNT 2.73 X10'6 (4.20-5.60); RED CELL DISTRIBUTION WIDTH 14.3 % (11.5-14.5); WHITE BLOOD COUNT 18.2 X10'3 (4.5-11.0)
[2017-12-05 04:01] LABS: ALBUMIN 2.7 G/DL (3.4-5.0); ANION GAP 6 (8-16); BLOOD UREA NITROGEN 33 MG/DL (7-18); BUN/CREATININE RATIO 40.2 (6.6-38.0); CALCIUM 8.7 MG/DL (8.5-10.1); CHLORIDE 99 MMOL/L (99-107); CREATININE 0.82 MG/DL (0.40-0.90); GLUCOSE 172 MG/DL (70-104); MAGNESIUM 2.3 MG/DL (1.5-2.4); PHOSPHORUS 3.4 MG/DL (2.3-4.5); POTASSIUM 4.7 MMOL/L (3.5-5.1); SODIUM 132 MMOL/L (135-145); TOTAL CARBON DIOXIDE 27.4 MMOL/L (24-32); eGFR 68 ML/MIN
[2017-12-05] MEDS: HYDROcodone/acetaminophen 10/325mg tab PO PRN ×3 (05:10→20:25)
[2017-12-05] MEDS: atorvastatin 10mg tablet PO SCH (07:42)
[2017-12-05] MEDS: metoprolol tartrate 12.5mg (1/2 tablet) PO SCH ×2 (07:42→20:24)
[2017-12-05] MEDS: aspirin 325mg tablet, delayed-release (Ecotrin) PO SCH (07:42)
[2017-12-05] MEDS: nitrofuran/nitrofuran macrocrysal 100 MG capsule PO SCH ×2 (07:42→20:24)
[2017-12-05] MEDS: multivitamins, therapeutics tablet PO SCH (07:43)
[2017-12-05] MEDS: pantoprazole 40mg Tablet.DR PO SCH (07:43)
[2017-12-05] MEDS: ceFAZolin 1GM/D5W- ADD-VANTAGE 50 ML IV SCH (07:43)
[2017-12-05] MEDS: mupirocin 2% ointment 22GM NS SCH (07:43)
[2017-12-05] MEDS: NUT.TX.GLUC.INTOLER,LAC-FR,REG (BOOST GLUCOSE CONTROL) 237 ML PO SCH ×3 (08:05→18:00)
[2017-12-05] MEDS: insulin Lispro (HumaLOG) vial - multi-dose SQ SCH ×3 (08:54→18:00)
[2017-12-05] MEDS: sodium chloride 0.45% 1,000 ML IV SCH (16:58)
[2017-12-06] VITALS (23 sets, daily range): BP systolic 115–158; BP diastolic 61–97
[2017-12-06] MEDS: HYDROcodone/acetaminophen 10/325mg tab PO PRN ×4 (03:41→18:39)
[2017-12-06 04:22] LABS: BASOPHILS % (AUTO) 0.1 % (0-1); EOSINOPHILS # (AUTO) 0.1 X10'3 (0-0.9); EOSINOPHILS % (AUTO) 0.7 % (0-6); HEMATOCRIT 24.3 % (35.0-45.0); HEMOGLOBIN 8.3 g/dl (12.0-16.0); LYMPHOCYTES # (AUTO) 1.4 X10'3 (1.1-4.8); LYMPHOCYTES % (AUTO) 6.9 % (21-51); MEAN CORPUSCULAR HEMOGLOBIN 30.7 PG (27.0-31.0); MEAN CORPUSCULAR HGB CONC 34.2 % (33.0-36.5); MEAN CORPUSCULAR VOLUME 89.8 FL (78-98); MEAN PLATELET VOLUME 7.8 FL (7.4-10.4); MONOCYTES # (AUTO) 1.1 X10'3 (0-0.9); MONOCYTES % (AUTO) 5.2 % (2-12); NEUTROPHILS # (AUTO) 17.9 X10'3 (1.8-7.7); NEUTROPHILS % (AUTO) 87.1 % (42-75); PLATELET COUNT 175 X10'3 (140-440); WHITE BLOOD COUNT 20.6 X10'3 (4.5-11.0)
[2017-12-06] MEDS: ipratropium/albuterol 3ml nebule IH PRN (04:29)
[2017-12-06 04:37] LABS: ALBUMIN 2.7 G/DL (3.4-5.0); ANION GAP 8 (8-16); BLOOD UREA NITROGEN 39 MG/DL (7-18); BUN/CREATININE RATIO 54.9 (6.6-38.0); CALCIUM 8.6 MG/DL (8.5-10.1); CHLORIDE 96 MMOL/L (99-107); CREATININE 0.71 MG/DL (0.40-0.90); GLUCOSE 135 MG/DL (70-104); MAGNESIUM 2.2 MG/DL (1.5-2.4); PHOSPHORUS 3.1 MG/DL (2.3-4.5); POTASSIUM 4.9 MMOL/L (3.5-5.1); SODIUM 131 MMOL/L (135-145); TOTAL CARBON DIOXIDE 26.8 MMOL/L (24-32); eGFR 81 ML/MIN
[2017-12-06] MEDS: insulin regular, human inj. 100 UNITS in normal saline 100ml IV soln 100 ML IV SCH ×2 (04:56)
[2017-12-06] MEDS: metoprolol tartrate 12.5mg (1/2 tablet) PO SCH (07:51)
[2017-12-06] MEDS: aspirin 325mg tablet, delayed-release (Ecotrin) PO SCH (07:51)
[2017-12-06] MEDS: nitrofuran/nitrofuran macrocrysal 100 MG capsule PO SCH ×2 (07:51→20:52)
[2017-12-06] MEDS: multivitamins, therapeutics tablet PO SCH (07:51)
[2017-12-06] MEDS: pantoprazole 40mg Tablet.DR PO SCH (07:51)
[2017-12-06] MEDS: atorvastatin 10mg tablet PO SCH (07:51)
[2017-12-06] MEDS: NUT.TX.GLUC.INTOLER,LAC-FR,REG (BOOST GLUCOSE CONTROL) 237 ML PO SCH ×3 (08:00→18:00)
[2017-12-06] MEDS: insulin Lispro (HumaLOG) vial - multi-dose SQ SCH ×3 (09:00→18:00)
[2017-12-06] MEDS: ketorolac tromethamine 15mg/ml inj. IV PRN (18:39)
[2017-12-06] MEDS: losartan 25mg tablet PO SCH (20:52)
[2017-12-06] MEDS: carVEDilol 12.5mg tablet PO SCH (20:52)
[2017-12-07] VITALS (17 sets, daily range): BP systolic 100–162; BP diastolic 54–90
[2017-12-07] MEDS: ondansetron/PF 4mg/2ml inj IV PRN ×3 (00:38→18:36)
[2017-12-07] MEDS: ketorolac tromethamine 15mg/ml inj. IV PRN ×3 (00:40→21:16)
[2017-12-07] MEDS: HYDROcodone/acetaminophen 10/325mg tab PO PRN ×3 (04:32→18:35)
[2017-12-07 05:28] LABS: BASOPHILS % (AUTO) 0.1 % (0-1); EOSINOPHILS # (AUTO) 0.4 X10'3 (0-0.9); EOSINOPHILS % (AUTO) 2.5 % (0-6); HEMATOCRIT 24.8 % (35.0-45.0); HEMOGLOBIN 8.4 g/dl (12.0-16.0); LYMPHOCYTES % (AUTO) 6.4 % (21-51); MEAN CORPUSCULAR HEMOGLOBIN 30.5 PG (27.0-31.0); MEAN CORPUSCULAR HGB CONC 33.8 % (33.0-36.5); MEAN CORPUSCULAR VOLUME 90.3 FL (78-98); MEAN PLATELET VOLUME 7.5 FL (7.4-10.4); MONOCYTES # (AUTO) 0.7 X10'3 (0-0.9); MONOCYTES % (AUTO) 4.6 % (2-12); NEUTROPHILS # (AUTO) 13.9 X10'3 (1.8-7.7); NEUTROPHILS % (AUTO) 86.4 % (42-75); PLATELET COUNT 183 X10'3 (140-440); RED BLOOD COUNT 2.74 X10'6 (4.20-5.60); RED CELL DISTRIBUTION WIDTH 14.2 % (11.5-14.5); WHITE BLOOD COUNT 16.1 X10'3 (4.5-11.0)
[2017-12-07] MEDS: insulin regular, human inj. 100 UNITS in normal saline 100ml IV soln 100 ML IV SCH ×2 (05:30)
[2017-12-07 05:49] LABS: ALBUMIN 2.7 G/DL (3.4-5.0); ANION GAP 5 (8-16); BLOOD UREA NITROGEN 37 MG/DL (7-18); BUN/CREATININE RATIO 52.1 (6.6-38.0); CALCIUM 8.6 MG/DL (8.5-10.1); CHLORIDE 97 MMOL/L (99-107); CREATININE 0.71 MG/DL (0.40-0.90); GLUCOSE 148 MG/DL (70-104); MAGNESIUM 2.2 MG/DL (1.5-2.4); PHOSPHORUS 3.1 MG/DL (2.3-4.5); SODIUM 132 MMOL/L (135-145); TOTAL CARBON DIOXIDE 30.1 MMOL/L (24-32); eGFR 81 ML/MIN
[2017-12-07] MEDS: nitrofuran/nitrofuran macrocrysal 100 MG capsule PO SCH ×2 (08:53→21:19)
[2017-12-07] MEDS: carVEDilol 12.5mg tablet PO SCH ×2 (08:54→21:18)
[2017-12-07] MEDS: aspirin 325mg tablet, delayed-release (Ecotrin) PO SCH (08:54)
[2017-12-07] MEDS: multivitamins, therapeutics tablet PO SCH (08:54)
[2017-12-07] MEDS: atorvastatin 10mg tablet PO SCH (08:54)
[2017-12-07] MEDS: pantoprazole 40mg Tablet.DR PO SCH (08:59)
[2017-12-07] MEDS: NUT.TX.GLUC.INTOLER,LAC-FR,REG (BOOST GLUCOSE CONTROL) 237 ML PO SCH ×3 (08:59→18:01)
[2017-12-07] MEDS: insulin Lispro (HumaLOG) vial - multi-dose SQ SCH (09:00)
[2017-12-07] MEDS ORDERED: potassium Cl 40MEQ/NS 500ml 500 ML IV PRN ×2 (10:05)
[2017-12-07] MEDS ORDERED: magnesium 4gm in 100ml NS 100 ML IV PRN (10:05)
[2017-12-07] MEDS ORDERED: magnesium 2GM in 50ml NS 50 ML IV PRN (10:05)
[2017-12-07] MEDS ORDERED: potassium Cl 20 mEq SR tablet PO PRN ×2 (10:05)
[2017-12-07] MEDS ORDERED: magnesium Cl slow-release 64mg tablet PO PRN (10:05)
[2017-12-07] MEDS: magnesium Cl slow-release 64mg tablet PO SCH (20:00)
[2017-12-07] MEDS: potassium Cl 20 mEq SR tablet PO SCH (20:00)
[2017-12-07] MEDS: losartan 25mg tablet PO SCH (21:14)
[2017-12-08] MEDS: ipratropium/albuterol 3ml nebule IH PRN ×2 (01:18→15:06)
[2017-12-08] MEDS: HYDROcodone/acetaminophen 10/325mg tab PO PRN ×2 (02:57→11:53)
[2017-12-08 03:00] VITALS: BP 131/74
[2017-12-08] MEDS: ondansetron/PF 4mg/2ml inj IV PRN ×2 (03:02→11:53)
[2017-12-08 05:08] LABS: BASOPHILS % (AUTO) 0.2 % (0-1); EOSINOPHILS # (AUTO) 0.3 X10'3 (0-0.9); EOSINOPHILS % (AUTO) 2.5 % (0-6); HEMATOCRIT 22.4 % (35.0-45.0); HEMOGLOBIN 7.6 g/dl (12.0-16.0); LYMPHOCYTES # (AUTO) 0.7 X10'3 (1.1-4.8); LYMPHOCYTES % (AUTO) 5.2 % (21-51); MEAN CORPUSCULAR HEMOGLOBIN 30.5 PG (27.0-31.0); MEAN CORPUSCULAR HGB CONC 33.8 % (33.0-36.5); MEAN CORPUSCULAR VOLUME 90.3 FL (78-98); MEAN PLATELET VOLUME 7.3 FL (7.4-10.4); MONOCYTES # (AUTO) 0.4 X10'3 (0-0.9); MONOCYTES % (AUTO) 3.1 % (2-12); NEUTROPHILS # (AUTO) 11.6 X10'3 (1.8-7.7); PLATELET COUNT 177 X10'3 (140-440); RED BLOOD COUNT 2.48 X10'6 (4.20-5.60); RED CELL DISTRIBUTION WIDTH 13.8 % (11.5-14.5); WHITE BLOOD COUNT 13.1 X10'3 (4.5-11.0)
[2017-12-08 05:28] LABS: ALBUMIN 2.5 G/DL (3.4-5.0); ANION GAP 5 (8-16); BLOOD UREA NITROGEN 34 MG/DL (7-18); BUN/CREATININE RATIO 49.3 (6.6-38.0); CALCIUM 8.6 MG/DL (8.5-10.1); CHLORIDE 98 MMOL/L (99-107); CREATININE 0.69 MG/DL (0.40-0.90); GLUCOSE 127 MG/DL (70-104); MAGNESIUM 2.2 MG/DL (1.5-2.4); POTASSIUM 5.1 MMOL/L (3.5-5.1); SODIUM 133 MMOL/L (135-145); TOTAL CARBON DIOXIDE 30.4 MMOL/L (24-32); eGFR 83 ML/MIN
[2017-12-08 06:30] VITALS: BP 144/90
[2017-12-08] MEDS: magnesium Cl slow-release 64mg tablet PO SCH (06:45)
[2017-12-08] MEDS: potassium Cl 20 mEq SR tablet PO SCH (06:45)
[2017-12-08] MEDS: multivitamins, therapeutics tablet PO SCH (07:52)
[2017-12-08] MEDS: pantoprazole 40mg Tablet.DR PO SCH (07:52)
[2017-12-08] MEDS: nitrofuran/nitrofuran macrocrysal 100 MG capsule PO SCH (07:52)
[2017-12-08] MEDS: aspirin 325mg tablet, delayed-release (Ecotrin) PO SCH (07:52)
[2017-12-08] MEDS: atorvastatin 10mg tablet PO SCH (07:52)
[2017-12-08] MEDS: carVEDilol 12.5mg tablet PO SCH (07:52)
[2017-12-08] MEDS: ketorolac tromethamine 15mg/ml inj. IV PRN (07:55)
[2017-12-08] MEDS ORDERED: K and/or MAG REPLACEMENT MC SCH (08:00)
[2017-12-08] MEDS: NUT.TX.GLUC.INTOLER,LAC-FR,REG (BOOST GLUCOSE CONTROL) 237 ML PO SCH ×2 (08:41→13:01)
[2017-12-08 11:00] VITALS: BP 117/69
[2017-12-08] MEDS ORDERED: RIVA20TA PO (15:15)
[2017-12-08 16:10] VITALS: BP 133/72
== END 2017-12-08 16:40 | DRG 233 ==
LOC: ER 07:09 → ICU 2S 08:00 → CICU 2S 12-03 15:02 → PCU 3S 12-07 14:50
PROVIDERS: ADMIT Internal Medicine Cardiovascular Disease; ATTEND Thoracic Surgery (Cardiothoracic Vascular Surgery)
PROC: 4A023N7 Measurement of Cardiac Sampling and Pressure, Left Heart, Percutaneous Approach (ICD-10-PCS; principal; 2017-11-29)
PROC: B2111ZZ Fluoroscopy of Multiple Coronary Arteries using Low Osmolar Contrast (ICD-10-PCS; 2017-11-29)
PROC: B2151ZZ Fluoroscopy of Left Heart using Low Osmolar Contrast (ICD-10-PCS; 2017-11-29)
PROC: B2171ZZ Fluoroscopy of Right Internal Mammary Bypass Graft using Low Osmolar Contrast (ICD-10-PCS; 2017-11-29)
PROC: B3201ZZ Computerized Tomography (CT Scan) of Thoracic Aorta using Low Osmolar Contrast (ICD-10-PCS; 2017-11-30)
PROC: B4201ZZ Computerized Tomography (CT Scan) of Abdominal Aorta using Low Osmolar Contrast (ICD-10-PCS; 2017-11-30)
PROC: 02100Z9 Bypass Coronary Artery, One Artery from Left Internal Mammary, Open Approach (ICD-10-PCS; 2017-12-03)
PROC: 021109W Bypass Coronary Artery, Two Arteries from Aorta with Autologous Venous Tissue, Open Approach (ICD-10-PCS; 2017-12-03)
PROC: 06BP4ZZ Excision of Right Saphenous Vein, Percutaneous Endoscopic Approach (ICD-10-PCS; 2017-12-03)
PROC: B24BZZ4 Ultrasonography of Heart with Aorta, Transesophageal (ICD-10-PCS; 2017-12-03)
PROC: 5A1221Z Performance of Cardiac Output, Continuous (ICD-10-PCS; 2017-12-03)
PROC: 02HV33Z Insertion of Infusion Device into Superior Vena Cava, Percutaneous Approach (ICD-10-PCS; 2017-12-03)
DX: I21.19 ST elevation (STEMI) myocardial infarction involving other coronary artery of inferior wall (principal); J96.00 Acute respiratory failure, unspecified whether with hypoxia or hypercapnia; I50.9 Heart failure, unspecified; I11.0 Hypertensive heart disease with heart failure; E87.3 Alkalosis; E87.1 Hypo-osmolality and hyponatremia; J43.9 Emphysema, unspecified; F41.9 Anxiety disorder, unspecified; I25.110 Atherosclerotic heart disease of native coronary artery with unstable angina pectoris; M54.9 Dorsalgia, unspecified; I25.5 Ischemic cardiomyopathy; I34.0 Nonrheumatic mitral (valve) insufficiency; I70.8 Atherosclerosis of other arteries; I73.9 Peripheral vascular disease, unspecified; J98.4 Other disorders of lung; I25.2 Old myocardial infarction; Z95.5 Presence of coronary angioplasty implant and graft; Z95.810 Presence of automatic (implantable) cardiac defibrillator; Z79.899 Other long term (current) drug therapy; Z79.82 Long term (current) use of aspirin; Z87.440 Personal history of urinary (tract) infections; Z87.891 Personal history of nicotine dependence
CPT/HCPCS: 0232T; 93306; 93312; 93325; 93459; 96374; 96375; 99285; 36415; 36600; 71045; 71275; 74174; 80048; 80053; 80061; 81003; 82330; 82435; 82803; 82947; 82948; 83036; 83735; 83880; 84100; 84132; 84295; 84484; 85018; 85025; 85347; 85384; 85610; 85730; 86885; 86900; 86901; 86920; 87070; 93005; 93880; 93922; 93925; 93971; 94002; 94010; 94640; 94668; 94760; 97110; 97116; 97161; 97530; 99152; 99153; A4310; A4620; A6213; A6255; A6257; A6258; A6402; A6449; A7000; A7048; C1751; C1758; C1769; C9113; J0171; J0690; J0780; J1265; J1644; J1815; J1885; J2001; J2060; J2150; J2250; J2270; J2274; J2370; J2405; J2440; J2765; J3010; J3370; J3475; J3480; J3490; J7030; J7120; P9045; P9047; Q9967

== ENCOUNTER 2017-12-08 20:13 | Emergency (ER) | payer MEDICARE, OTHER ==
[~2017-12-08 20:13] MED LIST changes: +RIVA20TA PO
[2017-12-08] MEDS ORDERED: HYDROcodone/acetaminophen 10/325mg tab PO ONE (23:25)
[2017-12-09] MEDS: HYDROcodone/acetaminophen 10/325mg tab PO ONE ×2 (00:30→00:38)
[2017-12-09] MEDS ORDERED: ondansetron 4mg rapidly disintigrating tab PO ONE ×2 (00:30→09:40)
[2017-12-09] MEDS ORDERED: HYDROcodone/acetaminophen 5mg/325mg tablet PO ONE (09:40)
[2017-12-09 12:03] VITALS: BP 138/79
== END 2017-12-09 12:20 | disposition home or self-care (01) ==
LOC: ER 20:14
DX: F41.9 Anxiety disorder, unspecified (principal); I25.10 Atherosclerotic heart disease of native coronary artery without angina pectoris; I11.0 Hypertensive heart disease with heart failure; I50.9 Heart failure, unspecified; J44.9 Chronic obstructive pulmonary disease, unspecified; Z95.1 Presence of aortocoronary bypass graft; Z79.82 Long term (current) use of aspirin; Z79.899 Other long term (current) drug therapy
CPT/HCPCS: 99284; J7030; 99283